=== PATIENT | female | born 2000 | race African-American/Black ===

== ENCOUNTER 2020-05-25 18:13 | Emergency (ER) | payer MEDICAID ==
[~2020-05-25] VITALS: Ht 157.5 cm; Wt 94.0 kg
[~2020-05-25 18:13] MED LIST: FERR-43 PO; PREN-88 PO
[2020-05-25 18:57] VITALS: BP 134/79
[2020-05-25] MEDS ORDERED: ACETAMINOPHEN 325MG TABLET PO ONE (19:45)
== END 2020-05-25 19:54 | disposition home or self-care (01) ==
LOC: ER 18:13
DX: H66.91 Otitis media, unspecified, right ear (principal); H92.01 Otalgia, right ear
CPT/HCPCS: 99283